=== PATIENT | female | born 1960 | race Asian ===

== ENCOUNTER 2017-09-13 16:22 | Emergency (ER) | payer OTHER ==
[2017-09-13 16:42] VITALS: BP 117/81
[2017-09-13] MEDS ORDERED: IBUPROFEN 800 MG TABLET PO STA (16:46)
--- NOTE | 2017-09-13 16:48 | ED Physician Documentation ---
History of Present Illness - Stated complaint Stated Complaint: RT ARM PAIN - Chief complaint Chief Complaint: General - History obtained from History obtained from: Patient, Family (son) - History of Present Illness Timing: Today (Trip and fall in her driveway about an hour ago landing on an outstretched left wrist. Also has scrapes on the ankle and hip on the right but is able to walk and bear weight without pain. No other injuries. No head or neck injury.) Review of Systems Constitutional: reports: Reviewed and negative Cardiac: reports: Reviewed and negative Respiratory: reports: Reviewed and negative PD PAST MEDICAL HISTORY - Present Medications Home Medications: Ambulatory Orders Medication Instructions Recorded Confirmed HYDROcod/ACETAM 5/325 [[place] 5/325] 1 - 2 ea PO Q6H PRN #15 tablet 09/13/17 - Allergies Allergies/Adverse Reactions: Allergies Allergy/AdvReac Type Severity Reaction Status Date / Time No Known Drug Allergies Allergy Verified 09/13/17 16:42 PD ED PE NORMAL - Vitals Vital signs reviewed: Yes - General General: Alert and oriented X 3, No acute distress - HEENT HEENT: PERRL, EOMI - Neck Neck: Supple, no meningeal sign, No bony TTP - Extremities Extremities: Normal ROM s pain (Lower extremities are without tenderness, there is a shallow abrasion over the left toe, but no tenderness there.), Other ( Tender over the right dorsal wrist with mild deformity consistent with mild Colles' fracture, the carpals are nontender and she is normal sensation in the hand, the elbow and the remainder of her active upper extremities are nontender. ) - Neuro Neuro: Alert and oriented X 3, Normal speech Results - Vitals Vitals: Vital Signs - 24 hr 09/13/17 16:38 Temperature 36.3 C L Heart Rate 70 Respiratory 18 Rate Blood Pressure 117/81 H O2 Saturation 97 Oxygen O2 Source Room air - Rads (name of study) R wrist 4v Radiology: EMP read contemporaneously (1. Acute, comminuted and impacted, displaced and volar angulated distal right radius metaphyseal fracture. 3 mm of volar displacement. 45 degrees of volar angulation. 2. Acute, distracted transverse fracture at the base of the ulnar styloid. 3. No dislocation. 4. Large amount of soft tissue swelling.) R forearm, post reduction Radiology: EMP read contemporaneously (1. Acute, angulated and impacted distal right radius metaphyseal fracture. Mild residual volar angulation after reduction. The volar displacement has been reduced. No dislocation. 2. Acute, stable distracted ulna styloid fracture. 3. No dislocation. Large amount of soft tissue swelling. 4. No fracture involving the roximal right radius or ulna. ) Procedures - Splint (location) R wrist/arm Splint applied by: Physician Type of splint: Fiberglass, Long arm, Sugar tong Other: Patient tolerated well, No complications, Neurovascular intact, Sling provided - Reduction Body part reduced: Right, Wrist Fracture or dislocation: Fracture Anesthesia: Hematoma block, Lidocaine (enter cc) (8) Reduction aftercare: Splint applied PD MEDICAL DECISION MAKING - Sepsis Event Vital Signs: Vital Signs - 24 hr 09/13/17 16:38 Temperature 36.3 C L Heart Rate 70 Respiratory 18 Rate Blood Pressure 117/81 H O2 Saturation 97 Oxygen O2 Source Room air Departure - Departure Disposition: 01 Home, Self Care Clinical Impression: Dickens's fracture of right radius Qualifiers: Encounter type: initial encounter Fracture type: closed Qualified Code(s): S52.541A - Dickens's fracture of right radius, initial encounter for closed fracture Condition: Good Record reviewed to determine appropriate education?: Yes Instructions: ED Fx Forearm Radius Ulna Redu Requ Follow-Up: [facility] [Provider Group] - Within 1 week Prescriptions: HYDROcod/ACETAM 5/325 [[place]olphus 5/325] 1 - 2 ea PO Q6H PRN #15 tablet PRN Reason: Pain
--- NOTE | 2017-09-13 17:53 | XRAY Report ---
Procedure Date: 09/13/2017 Accession Number: [id number] / [id number] Procedure: XR - Wrist 4 View RT CPT Code: FULL RESULT: EXAM: RIGHT WRIST RADIOGRAPHY. EXAM DATE: 09/13/2017 05:27 PM. CLINICAL HISTORY: Wrist injury. COMPARISON: None. TECHNIQUE: 3 views. FINDINGS: Bones: Acute, displaced and distracted transverse fracture at the base of the ulnar styloid. Acute, comminuted and impacted distal right radius metadiaphyseal fracture with at least 3 mm of volar displacement and 45 degrees of volar angulation. No carpal bone fracture. Joints: Normal. No subluxations. Soft Tissues: Large amount of swelling in the right wrist. IMPRESSION: 1. Acute, comminuted and impacted, displaced and volar angulated distal right radius metaphyseal fracture. 3 mm of volar displacement. 45 degrees of volar angulation. 2. Acute, distracted transverse fracture at the base of the ulnar styloid. 3. No dislocation. 4. Large amount of soft tissue swelling. RADIA
--- NOTE | 2017-09-13 18:39 | XRAY Report ---
Procedure Date: 09/13/2017 Accession Number: [id number] / [id number] Procedure: XR - Forearm RT CPT Code: FULL RESULT: EXAM: RIGHT FOREARM RADIOGRAPHY EXAM DATE: 09/13/2017 06:26 PM. CLINICAL HISTORY: Post reduction. COMPARISON: 09/13/2017. TECHNIQUE: 2 views. FINDINGS: Bones: Splint material obscures fine bone detail. There is an acute, impacted distal right radius metaphyseal fracture with minimal to mild volar angulation. No significant volar displacement on the current radiograph after reduction. Acute, mildly distracted ulna styloid avulsion fracture noted. Alignment is similar to the previous study. No carpal bone fracture. No fracture involving the mid or proximal right radius and ulna or distal right humerus. Joints: Normal. No effusions or subluxations in the visualized wrist or elbow joints. Soft Tissues: Large amount of right wrist swelling. IMPRESSION: 1. Acute, angulated and impacted distal right radius metaphyseal fracture. Mild residual volar angulation after reduction. The volar displacement has been reduced. No dislocation. 2. Acute, stable distracted ulna styloid fracture. 3. No dislocation. Large amount of soft tissue swelling. 4. No fracture involving the proximal right radius or ulna. RADIA
[2017-09-13] MEDS ORDERED: HYDROcod/ACET 5/325 Prepack 4 PO STA (18:48)
== END 2017-09-13 18:56 | disposition home or self-care (01) ==
LOC: ED 16:22
DX: S52.541A Smith's fracture of right radius, initial encounter for closed fracture (principal); S90.415A Abrasion, left lesser toe(s), initial encounter; W01.0XXA Fall on same level from slipping, tripping and stumbling without subsequent striking against object, initial encounter; Y92.89 Other specified places as the place of occurrence of the external cause
CPT/HCPCS: 25605; 73090; 73110; 99283; A9270

== ENCOUNTER 2017-09-16 09:32 | Outpatient (CLI) | END 2017-09-16 09:33 | disposition home or self-care (01) ==

== ENCOUNTER 2017-09-18 09:29 | Day surgery (SDC) | payer OTHER ==
[~2017-09-18 09:29] MED LIST: BRIMONIDINE 0.2% OPHTH DROPS 5 ML ONE; BSS/LIDOCAINE/EPINEPHRINE 1 ML SYRINGE ONE; EPINEPHrine 1 MG/ML AMP ONE; TIMOLOL 0.5% OPHTH DROPS ONE; TRIAMCIN/MOXIFLOX OPHTHALMIC 0.6 ML VIAL IO ONE; VANCOMYCIN OPHTHALMI 8MG/0.8ML 8 MG/0.8 ML SYRINGE IO ONE
[2017-09-18] MEDS ORDERED: ceFAZolin 2 GM/50 ML 2 GM/50 ML BAG IV ONE (09:58)
[2017-09-18] MEDS ORDERED: LACTATED RINGERS 1,000 ML IV ONE (10:25)
[2017-09-18] MEDS ORDERED: BUPIVACAINE 0.25%-EPI 1:200000 PF 30 ML VIAL ONE (10:36)
[2017-09-18] MEDS ORDERED: BUPIVACAINE 0.25%-EPI 1:200000 PF 10 ML VIAL SUBQ ONE ×2 (11:15)
[2017-09-18] MEDS ORDERED: ONDANSETRON 4 MG/2 ML VIAL IVP ONE (11:25)
[2017-09-18] MEDS ORDERED: DEXAMETHASONE 4 MG/ML VIAL IVP ONE (11:25)
[2017-09-18] MEDS ORDERED: MIDAZOLAM 2 MG/2 ML VIAL IVP ONE (11:25)
[2017-09-18] MEDS ORDERED: LIDOCAINE-MPF 2% 5 ML VIAL IM ONE (11:25)
[2017-09-18] MEDS ORDERED: KETOROLAC 30 MG/ML VIAL IVP ONE (11:25)
[2017-09-18] MEDS ORDERED: PROPOFOL 200 MG/20 ML VIAL IVP ONE (11:25)
[2017-09-18] MEDS ORDERED: fentaNYL 100 MCG/2 ML VIAL IVP ONE (11:25)
[2017-09-18] MEDS: HYDROmorphone 1 MG/ML CARPUJECT ONE ×2 (12:28→12:40)
[2017-09-18] MEDS ORDERED: ACETAMINOPHEN 1,000 MG/100 ML 100 ML IV ONE (12:33)
[2017-09-18] MEDS ORDERED: ONDANSETRON 4 MG/2 ML VIAL ONE (13:14)
[2017-09-18] MEDS ORDERED: oxyCOD/ACETAMIN 5 MG/325 MG TABLET PO ONE (13:38)
[2017-09-18 14:13] VITALS: BP 119/75
--- NOTE | 2017-09-18 14:23 | OPERATIVE REPORT ---
DATE OF SERVICE: 09/18/2017 Physician: Lucie Null MD PREOPERATIVE DIAGNOSIS: Comminuted right distal Colles fracture. POSTOPERATIVE DIAGNOSIS: Comminuted right distal Colles fracture. PROCEDURE PERFORMED: Open reduction, internal fixation of right distal radial fracture. OPERATING SURGEON: Lucie Null MD. ANESTHESIA: General. INDICATIONS FOR SURGERY: Patient is a 57-year-old female who has had a distal radial fracture, which is unstable and has failed nonoperative treatment including attempts at closed reduction in the emergency room. The patient presents and is recommended open reduction internal fixation of her wrist. FINDINGS AT SURGERY: The patient's wrist fracture was indeed unstable and with C-arm imaging was not able to be reduced closed. At open surgery, the fracture tended to displace medially and volarly and there was comminution of the radial styloid area. Bone density appeared fair and the intra-articular component of the fracture seemed nondisplaced. DESCRIPTION OF OPERATIVE PROCEDURE: The patient was taken to the operating room and given a general anesthetic, after which a surgical timeout was held. The patient's wrist was imaged after closed reduction and inspected and then it became clear that open reduction was needed, so a tourniquet was placed on the upper arm and the forearm and hand were sterilely prepped and draped in a standard fashion under tourniquet control at 250 mmHg. A volar radial incision was made overlying the flexor carpi radialis tendon. Incision was then deepened below this down to the volar surface of the distal radius reflecting off the muscle of the pronator quadratus, exposing the underlying bone and carefully upon exposure reducing the fracture into place and fixing a DVR Biomet plate to the metaphysis and centering it in proper position for fixation of the fracture. By plate application to the distal metaphysis of the bone, this created a buttress and pushed the fracture back up into position and proper screw fixation was undertaken with locking screws. The C-arm was repeatedly used during the procedure to confirm placement, reduction, screw position and length. At the conclusion, all surgical drill guides were taken off the plate. The area was irrigated. Closure was with interrupted Vicryl followed by interrupted Prolene suture and skin and sterile dressings were applied. The patient was casted in a very loosely fitted below elbow fiberglass cast and taken to the recovery room in stable condition. ESTIMATED BLOOD LOSS: Minimal. COMPLICATIONS: None. SPONGE AND NEEDLE COUNTS: Correct. TOTAL TOURNIQUET TIME: About 35 minutes at 250 mmHg. TD: 09/18/2017 13:21
== END 2017-09-18 09:30 | disposition home or self-care (01) ==
LOC: SDS 09:29
PROVIDERS: ATTEND Orthopaedic Surgery
PROC: 0PSH04Z Reposition Right Radius with Internal Fixation Device, Open Approach (ICD-10-PCS; principal; 2017-09-18 10:30)
DX: S52.571A Other intraarticular fracture of lower end of right radius, initial encounter for closed fracture (principal); S52.611A Displaced fracture of right ulna styloid process, initial encounter for closed fracture; I10 Essential (primary) hypertension; F17.210 Nicotine dependence, cigarettes, uncomplicated
CPT/HCPCS: 25609; A9270; C1713; J0131; J0690; J1170; J7120

== ENCOUNTER 2017-09-19 21:37 | Emergency (ER) | payer OTHER ==
[2017-09-19 21:49] VITALS: BP 134/99
--- NOTE | 2017-09-19 21:49 | ED Physician Documentation ---
PD HPI UPPER EXT INJURY - Stated complaint Stated Complaint: PAINFUL CAST - History obtained from History obtained from: Patient - History of Present Illness Location: Right, Wrist (She had a Dickens's fracture and had an ORIF yesterday, the cast is too tight and there is a lot of swelling and pain.) Review of Systems Constitutional: reports: Reviewed and negative Cardiac: reports: Reviewed and negative Respiratory: reports: Reviewed and negative PD PAST MEDICAL HISTORY - Past Medical History Cardiovascular: Hypertension Respiratory: Other Endocrine/Autoimmune: HyPOthyroidism GI: None : None HEENT: Chronic vision loss Psych: None Musculoskeletal: Other Derm: None - Past Surgical History Past Surgical History: No - Present Medications Home Medications: Ambulatory Orders Medication Instructions Recorded Confirmed HYDROcod/ACETAM 5/325 [[place] 5/325] 1 - 2 ea PO Q6H PRN #15 tablet 09/13/17 - Allergies Allergies/Adverse Reactions: Allergies Allergy/AdvReac Type Severity Reaction Status Date / Time No Known Drug Allergies Allergy Verified 09/13/17 16:42 - Social History Does the pt smoke?: Yes Smoking Status: Current every day smoker Does the pt drink ETOH?: Yes Does the pt have substance abuse?: No - Immunizations Immunizations are current?: Yes PD ED PE NORMAL - Vitals Vital signs reviewed: Yes - General General: Alert and oriented X 3, No acute distress - Extremities Extremities: Other (She has a tight cast on the right forearm and all the fingers are very swollen and ecchymotic but she has decent range of motion and good cap refill.) - Neuro Neuro: Alert and oriented X 3, Normal speech Results - Vitals Vitals: Vital Signs - 24 hr 09/19/17 21:47 Temperature 36.9 C Heart Rate 86 Respiratory 18 Rate Blood Pressure 134/99 H O2 Saturation 95 Oxygen O2 Source Room air PD MEDICAL DECISION MAKING - ED course ED course: I spoke with the on-call surgeon, Dr. Garcia and by phone who recommended clam shelling the cast, going only down to the webrilll on the radial side where the incision is And all the way down to the skin on the ulnar side. This was done and she tolerated well with improvement in her pain. - Sepsis Event Vital Signs: Vital Signs - 24 hr 09/19/17 21:47 Temperature 36.9 C Heart Rate 86 Respiratory 18 Rate Blood Pressure 134/99 H O2 Saturation 95 Oxygen O2 Source Room air Departure - Departure Disposition: Home, Self Care Clinical Impression: Tight cast Condition: Good Record reviewed to determine appropriate education?: Yes Comments: Follow-up with the orthopedic surgeon next week for reevaluation. Return if worse or if new symptoms develop.
== END 2017-09-19 22:12 | disposition home or self-care (01) ==
LOC: ED 21:37
DX: Z46.89 Encounter for fitting and adjustment of other specified devices (principal); M25.531 Pain in right wrist; S52.541A Smith's fracture of right radius, initial encounter for closed fracture
CPT/HCPCS: 99282

== ENCOUNTER 2017-10-29 11:29 | Outpatient (CLI) | payer OTHER ==
[2017-10-29 17:35] LABS: CALCIUM 9.5 mg/dL (8.5-10.3); CREATININE 0.7 mg/dL (0.4-1.0)
== END 2017-10-29 11:30 | disposition home or self-care (01) ==
LOC: LAB.F 11:29
PROVIDERS: ATTEND Internal Medicine
DX: E03.9 Hypothyroidism, unspecified (principal)
CPT/HCPCS: 36415; 80048; 84443